=== PATIENT | female | born 2005 | race Caucasian/White ===

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

== ENCOUNTER 2025-01-04 14:27 | Outpatient (CLI) | payer MEDICAID, SELFPAY | END 2025-01-04 14:28 | disposition home or self-care (01) | PROVIDERS: PCP Internal Medicine; Visit Provider Family Medicine | DX: Z02.0 Encounter for examination for admission to educational institution (principal) | CPT/HCPCS: 86480; 86762; 86765; 86787 ==

== ENCOUNTER 2025-03-13 13:18 | Outpatient (CLI) | payer MEDICAID, SELFPAY | END 2025-03-13 13:19 | disposition home or self-care (01) | PROVIDERS: PCP Family Medicine; Visit Provider Family Medicine | DX: R00.0 Tachycardia, unspecified (principal); R03.0 Elevated blood-pressure reading, without diagnosis of hypertension; R26.89 Other abnormalities of gait and mobility; R51.9 Headache, unspecified | CPT/HCPCS: 80053; 83835; 84443 ==

== ENCOUNTER 2025-03-16 06:58 | Outpatient (CLI) | payer MEDICAID, SELFPAY ==
--- NOTE | 2025-03-16 07:15 | CRLHL7_ITS ---
For Patients: As a result of the Century Cures Act, medical imaging exams and procedure reports are released immediately into your electronic medical record. You may view this report before your referring provider. If you have questions, please contact your health care provider. Indication: Sudden onset hypertension. Tachycardia. Technique: Multiplanar multisequence noncontrast MR images of the brain. Comparison: None. Findings: The ventricles and sulci are within normal limits for patient age. No mass or midline shift. No parenchymal signal abnormalities. No diffusion restriction to suggest acute infarction. No intracranial hemorrhage or pathologic extra-axial fluid collection. The major arterial flow voids of the skull base are preserved. Globes are symmetric. Minimal ethmoid sinus mucosal thickening. Mastoid air cells are clear. Impression: Unremarkable noncontrast MRI of the brain. Dictated by Benji Taylor MD @ 03/16/2025 10:17:06 AM (Electronically Signed)
== END 2025-03-16 06:59 | disposition home or self-care (01) ==
LOC: MRI 06:59
PROVIDERS: PCP Family Medicine; Visit Provider Family Medicine
DX: R03.0 Elevated blood-pressure reading, without diagnosis of hypertension (principal); R00.0 Tachycardia, unspecified
CPT/HCPCS: 70551

== ENCOUNTER 2025-03-17 10:00 | Outpatient (CLI) | payer MEDICAID, SELFPAY | END 2025-03-17 10:01 | disposition home or self-care (01) | LOC: NFLDREF 03-22 10:33 | PROVIDERS: PCP Family Medicine; Referring Provider Family Medicine; Visit Provider Family Medicine | DX: R26.89 Other abnormalities of gait and mobility (principal); R51.9 Headache, unspecified; R20.2 Paresthesia of skin | CPT/HCPCS: 83835 ==